=== PATIENT | female | born 1940 | race African-American/Black ===

== ENCOUNTER 2016-12-23 22:40 | Inpatient (IN) | payer MEDICARE, MEDICAID ==
[~2016-12-23] VITALS: Ht 162.6 cm; Wt 86.3 kg
[~2016-12-23 22:40] MED LIST: ACET-2178 PO; AMLO5TAB4 PO; DOCU-138 PO; IOHEXOL-300 100 ML BOTTLE ONE; IPRA3AMP IH; LACT10SO PO; OMEP20CA4 PO; ONDA4TAB51 PO; P20 PO; RIVA20TA PO; SODIUM CHLORIDE 0.9% 10ML VIAL ONE
[2016-12-24 01:17] LABS: BASOPHILS % 1.3 % (0.0-2.0); EOSINOPHILS % 2.1 % (0.0-5.0); HEMATOCRIT. 47.6 % (36.0-48.0); HEMOGLOBIN. 15.2 g/dL (12.0-16.0); LYMPHOCYTES % 29.4 % (20.0-50.0); MEAN CORPUSCULAR HEMOGLOBIN 29.8 pg (28.0-32.0); MEAN CORPUSCULAR VOLUME 93.2 fL (81.0-99.0); MEAN PLATELET VOLUME 8.8 fl (7.4-10.4); NEUTROPHILS % 59.2 % (40.0-76.0); PLATELET 234 x1000/uL (130-400); RED BLOOD CELL COUNT 5.11 mill/uL (4.2-5.4); RED CELL DISTRIBUTION WIDTH 15.9 % (11.6-14.6)
[2016-12-24 01:27] LABS: ALANINE AMINOTRANSFERASE 13 IU/L (13-61); ALBUMIN 3.3 g/dL (3.4-5.0); ANION GAP 17; CALCIUM 8.7 mg/dL (8.5-10.1); CARBON DIOXIDE 24 mEq/L (21-32); CHLORIDE 105 mEq/L (98-107); INDEX HEMOLYSI 2 (1-3); INDEX ICTERIC 1 (1-4); INDEX LIPEMIC 1 (1-3); UREA NITROGEN BLOOD 28 mg/dL (7-21)
[2016-12-24 01:31] LABS: NT PRO B-TYPE NATRIURETIC PEP 10563 pg/mL (5-125); TROPONIN I 0.09 ng/mL (0.00-0.04); eGFR 53 mL/min (>60)
[2016-12-24 01:35] LABS: LACTIC ACID 2.6 mmol/L (0.4-2.0)
[2016-12-24] MEDS ORDERED: SODIUM CHLORIDE 0.9% 1,000 ML IV ONE (03:19)
[2016-12-24 12:15] VITALS: BP 108/68
[2016-12-24] MEDS ORDERED: ALD50 PO (13:11)
[2016-12-24] MEDS ORDERED: METF10002 PO (13:11)
[2016-12-24] MEDS ORDERED: FURO-151 PO (13:11)
[2016-12-24] MEDS ORDERED: GABA-531 PO (13:11)
[2016-12-24] MEDS ORDERED: DILT120C2 PO (13:11)
[2016-12-24] MEDS ORDERED: POTA10CA42 PO (13:11)
[2016-12-24] MEDS ORDERED: LOSA25TA12 PO (13:11)
[2016-12-24] MEDS ORDERED: DIPH25CA83 PO (13:11)
[2016-12-24] MEDS ORDERED: TRAM50TA3 PO (13:11)
[2016-12-24] MEDS ORDERED: RIVA20TA PO (13:13)
[2016-12-24 13:15] VITALS: BP 108/68
[2016-12-24] MEDS ORDERED: DEXTROSE 50% WATER 50ML SYRINGE IV PRN (15:00)
[2016-12-24] MEDS ORDERED: ACETAMINOPHEN 325MG TABLET PO PRN (15:15)
[2016-12-24] MEDS ORDERED: IPRATROPIUM/ALBUTEROL 0.5-3(2.5)MG/3ML NEB HHN PRN (15:15)
[2016-12-24] MEDS ORDERED: ONDANSETRON HCL 4MG/2ML VIAL IV PRN (15:15)
[2016-12-24] MEDS ORDERED: BISACODYL 5MG TABLET PO PRN (15:30)
[2016-12-24 16:00] VITALS: BP 113/73
[2016-12-24] MEDS ORDERED: ENOXAPARIN 40MG/0.4ML SYR SUBCUT SCH (16:00)
[2016-12-24] MEDS ORDERED: [UNRECOGNIZED DRUG - MIXTURE] TOP PRN (16:30)
[2016-12-24] MEDS ORDERED: LIDOCAINE HCL 20 MG/ML 100ML BOTTLE MM PRN (17:30)
[2016-12-24 17:37] LABS: ALANINE AMINOTRANSFERASE 16 IU/L (13-61); ALBUMIN 3.2 g/dL (3.4-5.0); ANION GAP 16; CALCIUM 8.5 mg/dL (8.5-10.1); CARBON DIOXIDE 24 mEq/L (21-32); CHLORIDE 105 mEq/L (98-107); INDEX HEMOLYSI 1 (1-3); INDEX ICTERIC 1 (1-4); INDEX LIPEMIC 1 (1-3); TROPONIN I 0.05 ng/mL (0.00-0.04); UREA NITROGEN BLOOD 22 mg/dL (7-21); eGFR 58 mL/min (>60)
[2016-12-24] MEDS: INSULIN LISPRO 100 UNITS/ML SUBCUT SCH ×2 (17:50→21:00)
[2016-12-24] MEDS: BLOOD SUGAR DIAGNOSTIC STRIP TEST SCH ×2 (18:05→21:00)
[2016-12-24] MEDS: PREDNISONE 10MG TABLET PO SCH (18:11)
[2016-12-24] MEDS: GABAPENTIN 300MG CAPSULE PO SCH (18:11)
[2016-12-24] MEDS: RIVAROXABAN 20 MG TABLET PO SCH (18:11)
[2016-12-24] MEDS: METFORMIN HCL 500MG TABLET PO SCH (18:14)
[2016-12-24 20:00] VITALS: BP 109/64
[2016-12-24] MEDS: DILTIAZEM HCL 30MG TABLET PO SCH (21:00)
[2016-12-24] MEDS: TRAMADOL 50MG TABLET PO PRN (22:04)
[2016-12-24] MEDS: OMEPRAZOLE 20MG CAPSULE EXTENDED RELEASE PO SCH (22:04)
[2016-12-25] VITALS: BP 121/73
[2016-12-25 04:00] VITALS: BP 126/75
[2016-12-25] MEDS: BLOOD SUGAR DIAGNOSTIC STRIP TEST SCH ×4 (06:51→21:24)
[2016-12-25] MEDS: OMEPRAZOLE 20MG CAPSULE EXTENDED RELEASE PO SCH (06:51)
[2016-12-25] MEDS: INSULIN LISPRO 100 UNITS/ML SUBCUT SCH ×4 (07:47→21:24)
[2016-12-25 08:10] VITALS: BP 111/79
[2016-12-25] MEDS: METFORMIN HCL 500MG TABLET PO SCH ×2 (08:48→18:00)
[2016-12-25] MEDS: PREDNISONE 10MG TABLET PO SCH ×3 (08:49→17:59)
[2016-12-25] MEDS: LOSARTAN POTASSIUM 25 MG TABLET PO SCH (08:49)
[2016-12-25] MEDS: GABAPENTIN 300MG CAPSULE PO SCH ×2 (08:49→17:59)
[2016-12-25] MEDS: DILTIAZEM HCL 30MG TABLET PO SCH ×3 (08:49→21:58)
[2016-12-25] MEDS: SPIRONOLACTONE 25MG TABLET PO SCH (08:49)
[2016-12-25] MEDS ORDERED: POTASSIUM CHLORIDE 20MEQ TABLET SR PO SCH (09:00)
[2016-12-25] MEDS ORDERED: FUROSEMIDE 40MG TABLET PO SCH (09:00)
[2016-12-25 12:10] VITALS: BP 103/67
[2016-12-25 15:59] VITALS: BP 113/60
[2016-12-25] MEDS: RIVAROXABAN 20 MG TABLET PO SCH (17:59)
[2016-12-25] MEDS: FUROSEMIDE 40MG/4ML VIAL IVP SCH (18:00)
[2016-12-25 20:00] VITALS: BP 102/56
[2016-12-26] VITALS: BP 106/67
[2016-12-26 04:00] VITALS: BP 115/66
[2016-12-26 06:06] LABS: BASOPHILS % 0.3 % (0.0-2.0); EOSINOPHILS % 0.2 % (0.0-5.0); HEMATOCRIT. 42.3 % (36.0-48.0); HEMOGLOBIN. 13.9 g/dL (12.0-16.0); LYMPHOCYTES % 17.3 % (20.0-50.0); MEAN CORPUSCULAR HEMOGLOBIN 30.1 pg (28.0-32.0); MEAN CORPUSCULAR HGB CONC 32.7 g/dL (31.0-37.0); MEAN CORPUSCULAR VOLUME 92.1 fL (81.0-99.0); MEAN PLATELET VOLUME 8.4 fl (7.4-10.4); MONOCYTES % 6.3 % (2.0-8.0); NEUTROPHILS % 75.9 % (40.0-76.0); PLATELET 223 x1000/uL (130-400); RED CELL DISTRIBUTION WIDTH 15.7 % (11.6-14.6); WHITE BLOOD COUNT 8.7 x1000/uL (4.5-11.0)
[2016-12-26 06:36] LABS: ANION GAP 15; CALCIUM 8.6 mg/dL (8.5-10.1); CARBON DIOXIDE 26 mEq/L (21-32); CHLORIDE 105 mEq/L (98-107); INDEX HEMOLYSI 1 (1-3); INDEX ICTERIC 1 (1-4); INDEX LIPEMIC 1 (1-3); MAGNESIUM 1.7 mg/dL (1.8-2.4); UREA NITROGEN BLOOD 25 mg/dL (7-21); eGFR > 60 mL/min (>60)
[2016-12-26] MEDS: BLOOD SUGAR DIAGNOSTIC STRIP TEST SCH ×4 (06:37→20:36)
[2016-12-26] MEDS: DILTIAZEM HCL 30MG TABLET PO SCH ×3 (06:44→21:02)
[2016-12-26] MEDS: FUROSEMIDE 40MG/4ML VIAL IVP SCH ×2 (06:44→16:36)
[2016-12-26] MEDS: INSULIN LISPRO 100 UNITS/ML SUBCUT SCH ×4 (07:50→21:02)
[2016-12-26 08:00] VITALS: BP 107/66
[2016-12-26] MEDS: METFORMIN HCL 500MG TABLET PO SCH ×2 (08:41→17:50)
[2016-12-26] MEDS: SPIRONOLACTONE 25MG TABLET PO SCH (08:41)
[2016-12-26] MEDS: GABAPENTIN 300MG CAPSULE PO SCH ×2 (08:42→16:36)
[2016-12-26] MEDS: FAMOTIDINE 20MG TABLET PO SCH (08:42)
[2016-12-26] MEDS: PREDNISONE 10MG TABLET PO SCH ×3 (08:42→16:36)
[2016-12-26] MEDS: LOSARTAN POTASSIUM 25 MG TABLET PO SCH (08:46)
[2016-12-26 12:00] VITALS: BP 97/66
[2016-12-26] MEDS ORDERED: MAGNESIUM 2 G PREMIX 50 ML IV NR (12:00)
[2016-12-26] MEDS: TRAMADOL 50MG TABLET PO PRN (12:25)
[2016-12-26 16:00] VITALS: BP 102/64
[2016-12-26] MEDS: RIVAROXABAN 20 MG TABLET PO SCH (16:36)
[2016-12-26 20:00] VITALS: BP 129/81
[2016-12-27] VITALS: BP 126/72
[2016-12-27 04:00] VITALS: BP 130/86
[2016-12-27] MEDS: DILTIAZEM HCL 30MG TABLET PO SCH ×3 (06:17→21:33)
[2016-12-27] MEDS: FUROSEMIDE 40MG/4ML VIAL IVP SCH (06:17)
[2016-12-27] MEDS: BLOOD SUGAR DIAGNOSTIC STRIP TEST SCH ×4 (06:22→21:00)
[2016-12-27] MEDS: INSULIN LISPRO 100 UNITS/ML SUBCUT SCH ×4 (07:21→21:32)
[2016-12-27 08:00] VITALS: BP 110/70
[2016-12-27 08:20] LABS: CALCIUM 9.2 mg/dL (8.5-10.1); MAGNESIUM 2.6 mg/dL (1.8-2.4)
[2016-12-27] MEDS: METFORMIN HCL 500MG TABLET PO SCH (08:43)
[2016-12-27] MEDS: LOSARTAN POTASSIUM 25 MG TABLET PO SCH (08:44)
[2016-12-27] MEDS: GABAPENTIN 300MG CAPSULE PO SCH ×2 (08:44→17:20)
[2016-12-27] MEDS: PREDNISONE 10MG TABLET PO SCH ×3 (08:44→17:20)
[2016-12-27] MEDS: SPIRONOLACTONE 25MG TABLET PO SCH (08:44)
[2016-12-27] MEDS: FAMOTIDINE 20MG TABLET PO SCH (08:44)
[2016-12-27] MEDS ORDERED: FUROSEMIDE 40MG TABLET PO SCH (09:30)
[2016-12-27 12:00] VITALS: BP 109/72
[2016-12-27 16:00] VITALS: BP 97/61
[2016-12-27] MEDS: RIVAROXABAN 20 MG TABLET PO SCH (17:20)
[2016-12-27] MEDS: TRAMADOL 50MG TABLET PO PRN (19:53)
[2016-12-27 20:00] VITALS: BP 114/65
[2016-12-27] MEDS: FUROSEMIDE 40MG TABLET PO SCH (21:30)
[2016-12-28] VITALS: BP 107/71
[2016-12-28 04:00] VITALS: BP 112/66
[2016-12-28] MEDS: DILTIAZEM HCL 30MG TABLET PO SCH ×3 (06:00→21:27)
[2016-12-28] MEDS: BLOOD SUGAR DIAGNOSTIC STRIP TEST SCH ×4 (06:31→20:46)
[2016-12-28] MEDS: INSULIN LISPRO 100 UNITS/ML SUBCUT SCH ×4 (07:50→20:46)
[2016-12-28 08:00] VITALS: BP 99/65
[2016-12-28 08:04] LABS: CALCIUM 9.1 mg/dL (8.5-10.1)
[2016-12-28] MEDS: GABAPENTIN 300MG CAPSULE PO SCH ×2 (08:47→16:28)
[2016-12-28] MEDS: LOSARTAN POTASSIUM 25 MG TABLET PO SCH (08:48)
[2016-12-28] MEDS: FAMOTIDINE 20MG TABLET PO SCH (08:48)
[2016-12-28] MEDS: SPIRONOLACTONE 25MG TABLET PO SCH (08:48)
[2016-12-28] MEDS: FUROSEMIDE 40MG TABLET PO SCH (08:48)
[2016-12-28] MEDS: PREDNISONE 10MG TABLET PO SCH ×3 (08:48→16:28)
[2016-12-28] MEDS: TRAMADOL 50MG TABLET PO PRN ×2 (09:44→16:29)
[2016-12-28 12:00] VITALS: BP 106/70
[2016-12-28 16:00] VITALS: BP 107/63
[2016-12-28] MEDS: RIVAROXABAN 20 MG TABLET PO SCH (16:28)
[2016-12-28 20:00] VITALS: BP 109/81
[2016-12-28] MEDS: FUROSEMIDE 20MG TABLET PO SCH (20:43)
[2016-12-29] VITALS (7 sets, daily range): BP systolic 105–120; BP diastolic 71–89
[2016-12-29] MEDS: DILTIAZEM HCL 30MG TABLET PO SCH ×2 (05:19→12:51)
[2016-12-29] MEDS: TRAMADOL 50MG TABLET PO PRN ×2 (05:22→12:50)
[2016-12-29] MEDS: BLOOD SUGAR DIAGNOSTIC STRIP TEST SCH ×3 (06:38→17:29)
[2016-12-29 06:45] LABS: ALBUMIN 3.3 g/dL (3.4-5.0); BILIRUBIN DIRECT 0.1 mg/dL (0.0-0.2); CALCIUM 8.8 mg/dL (8.5-10.1); MAGNESIUM 2.3 mg/dL (1.8-2.4); PHOSPHORUS 3.6 mg/dL (2.5-4.9); URIC ACID 7.2 mg/dL (2.6-7.2)
[2016-12-29 06:51] LABS: T3 FREE 1.01 pg/ml (2.18-3.98); THYROID STIMULATING HORMONE 0.36 uIU/mL (0.36-3.74)
[2016-12-29 06:55] LABS: BASOPHILS % 0.1 % (0.0-2.0); EOSINOPHILS % 0.1 % (0.0-5.0); HEMATOCRIT. 46.3 % (36.0-48.0); LYMPHOCYTES % 18.6 % (20.0-50.0); MEAN CORPUSCULAR HGB CONC 32.5 g/dL (31.0-37.0); MEAN CORPUSCULAR VOLUME 92.5 fL (81.0-99.0); MEAN PLATELET VOLUME 8.7 fl (7.4-10.4); MONOCYTES % 6.9 % (2.0-8.0); NEUTROPHILS % 74.3 % (40.0-76.0); PLATELET 252 x1000/uL (130-400); RED CELL DISTRIBUTION WIDTH 15.8 % (11.6-14.6); WHITE BLOOD COUNT 10.4 x1000/uL (4.5-11.0)
[2016-12-29] MEDS: INSULIN LISPRO 100 UNITS/ML SUBCUT SCH ×3 (07:50→17:29)
[2016-12-29] MEDS: GABAPENTIN 300MG CAPSULE PO SCH ×2 (08:50→17:28)
[2016-12-29] MEDS: LOSARTAN POTASSIUM 25 MG TABLET PO SCH (08:50)
[2016-12-29] MEDS: FUROSEMIDE 20MG TABLET PO SCH (08:50)
[2016-12-29] MEDS: FAMOTIDINE 20MG TABLET PO SCH (08:50)
[2016-12-29] MEDS: PREDNISONE 10MG TABLET PO SCH ×3 (08:50→17:28)
[2016-12-29 09:18] LABS: CLARITY URINE CLOUDY (CLEAR); COLOR URINE YELLOW (YELLOW); GLUCOSE URINE NEGATIVE (NEGATIVE); KETONES URINE NEGATIVE (NEGATIVE); LEUKOCYTE ESTERASE URINE 3+ (NEGATIVE); NITRITE URINE NEGATIVE (NEGATIVE); OCCULT BLOOD URINE 3+ (NEGATIVE); PH URINE 5.5 (4.5-8.0); PROTEIN URINE NEGATIVE (NEGATIVE); SPECIFIC GRAVITY URINE 1.019 (1.005-1.030)
[2016-12-29 10:27] LABS: SQUAMOUS EPITHELIAL CELL URINE RARE /lpf (RARE/1+)
[2016-12-29 10:28] LABS: BACTERIA URINE 4+
[2016-12-29 10:29] LABS: YEAST URINE RARE
[2016-12-29] MEDS: RIVAROXABAN 20 MG TABLET PO SCH (17:28)
[2016-12-29] MEDS: METFORMIN HCL 500MG TABLET PO SCH (17:29)
== END 2016-12-29 20:05 | DRG 300 ==
LOC: ER 22:41 → 6WST 12-24 03:34
PROVIDERS: ADMIT Internal Medicine; ATTEND Internal Medicine
DX: I82.411 Acute embolism and thrombosis of right femoral vein (principal); I42.9 Cardiomyopathy, unspecified; I11.0 Hypertensive heart disease with heart failure; I82.431 Acute embolism and thrombosis of right popliteal vein; I50.9 Heart failure, unspecified; E11.9 Type 2 diabetes mellitus without complications; E78.5 Hyperlipidemia, unspecified; I48.2 Chronic atrial fibrillation; I49.5 Sick sinus syndrome; E66.9 Obesity, unspecified; F03.90 Unspecified dementia, unspecified severity, without behavioral disturbance, psychotic disturbance, mood disturbance, and anxiety; I34.0 Nonrheumatic mitral (valve) insufficiency; I71.9 Aortic aneurysm of unspecified site, without rupture; M47.816 Spondylosis without myelopathy or radiculopathy, lumbar region; Z86.711 Personal history of pulmonary embolism; Z90.710 Acquired absence of both cervix and uterus; Z95.0 Presence of cardiac pacemaker; Z88.0 Allergy status to penicillin; Z79.899 Other long term (current) drug therapy; Z87.81 Personal history of (healed) traumatic fracture; Z68.32 Body mass index [BMI] 32.0-32.9, adult
CPT/HCPCS: 36415; 71010; 71275; 80048; 80053; 80076; 81001; 82962; 83036; 83605; 83735; 83880; 84100; 84439; 84443; 84481; 84484; 84550; 85025; 85379; 85651; 87040; 87086; 93005; 93970; 96360; 96361; 99285; A4216; A6261; C1893; J1815; J1940; J3475; J7030; J7050; J7512; Q9967